=== PATIENT | female | born 1945 | race Caucasian/White ===

== ENCOUNTER 2024-07-24 10:10 | Observation (INO) | payer MEDICARE ==
[~2024-07-24] VITALS: Ht 162.6 cm; Wt 48.1 kg
[2024-07-24 11:48] LABS: BASOPHILS ABSOLUTE AUTO 0.04 K/mm3 (0.00-0.23); BASOPHILS PERCENT AUTO 0 % (0-2); EOSINOPHILS ABSOLUTE AUTO 0.34 K/mm3 (0.00-0.68); EOSINOPHILS PERCENT AUTO 4 % (0-6); Hematocrit 38.5 % (33.0-51.0); Hemoglobin 11.9 g/dL (11.5-16.0); IMMATURE GRAN ABSOLUTE AUTO 0.04 K/mm3 (0.00-0.10); IMMATURE GRAN PERCENT AUTO 0 % (0-1); LYMPHOCYTES ABSOLUTE AUTO 1.12 K/mm3 (0.84-5.20); LYMPHOCYTES PERCENT AUTO 12 % (21-46); MONOCYTES ABSOLUTE AUTO 0.62 K/mm3 (0.16-1.47); MONOCYTES PERCENT AUTO 6 % (4-13); Mean Corpuscular HGB Conc 30.9 g/dL (31.5-36.5); Mean Corpuscular Volume 87 fL (80-100); Mean Platelet Volume 11.8 fL (9.1-12.4); NEUTROPHILS ABSOLUTE AUTO 7.61 K/mm3 (1.96-9.15); NEUTROPHILS PERCENT AUTO 78 % (41-73); Platelet Count 216 K/mm3 (150-400); RDW Standard Deviation 48.3 fL (35.1-46.3); Red Blood Cell Count 4.41 M/mm3 (3.80-5.20); White Blood Cell Count 9.77 K/mm3 (4.00-11.30)
[2024-07-24 12:13] LABS: Albumin, Blood 3.1 g/dL (3.4-5.0); Albumin/Globulin Ratio 0.6 (0.8-1.8); Bilirubin, Total 0.6 mg/dL (0.1-1.0); Bun/Creatinine Ratio 37.2 (12.0-20.0); Calcium, Blood 9.5 mg/dL (8.5-10.1); Creatinine, Blood 0.81 mg/dL (0.40-1.00); Globulin, Blood 4.8 g/dL (2.2-4.0); Potassium, Blood 4.1 mmol/L (3.5-5.5); Total Protein, Blood 7.9 g/dL (6.4-8.2)
[2024-07-24] MEDS ORDERED: NS 1,000 ML IV SCH (14:45)
[2024-07-24 15:45] LABS: Influenza A, PCR NEGATIVE (NEGATIVE); Influenza B, PCR NEGATIVE (NEGATIVE); Resp Syncytial Virus, PCR NEGATIVE (NEGATIVE); SARS-Cov-2 (COVID-19) PCR, MMC NEGATIVE (NEGATIVE)
[2024-07-24] MEDS ORDERED: Metoprolol Tartrate 1 MG/ML 5 ML VIAL IV PRN (17:25)
[2024-07-24 19:18] LABS: Source, Urine Straight Cath
[2024-07-24 19:20] LABS: Appearance, Urine Clear (Clear); Bilirubin, Urine Neg (Neg); Blood, Urine 1+ (Neg); Glucose Qualitative, Urine Neg (Neg); Ketones, Urine Neg (Neg); Leukocyte Esterase, Urine Neg (Neg); Nitrite, Urine Neg (Neg); Protein, Urine 2+ (Neg); Specific Gravity, Urine 1.005 (1.003-1.022); Urobilinogen, Urine NORM (Normal)
[2024-07-24 19:26] LABS: Color, Urine Pale Yellow (P-Yellow)
[2024-07-24 19:27] LABS: Bacteria Rare /hpf; Squamous Epithelial Cells Not Seen /hpf (Few); White Blood Cells, Urine 0-2 /hpf (0-5)
[2024-07-24 19:38] LABS: International Normalized Ratio 0.94; Prothrombin Time Results 10.1 Sec (9.7-11.5)
[2024-07-24] MEDS ORDERED: Cephalexin Monohydrate 500 MG Cap PO ONE (22:10)
[2024-07-24] MEDS ORDERED: FLU VACC TS2024-25(6MOS UP)/PF 45 MCG/0.5 ML SYRINGE IM SCH (23:00)
[2024-07-25] MEDS ORDERED: Cephalexin Monohydrate 500 MG Cap PO ONE (00:45)
[2024-07-25 02:00] LABS: CHOL/HDL RATIO 3.5; Cholesterol 187 mg/dL (50-200); HDL Cholesterol 54 mg/dL (>39); LDL/HDL RATIO 2.2; Low Density Lipoprotein Chol 120 mg/dL (0-110); Triglycerides 64 mg/dL (30-160); Very Low Density Lipoprot Chol 12 mg/dL (6-32)
[2024-07-25 06:19] LABS: BASOPHILS ABSOLUTE AUTO 0.04 K/mm3 (0.00-0.23); BASOPHILS PERCENT AUTO 1 % (0-2); EOSINOPHILS ABSOLUTE AUTO 0.28 K/mm3 (0.00-0.68); EOSINOPHILS PERCENT AUTO 4 % (0-6); Hemoglobin 10.4 g/dL (11.5-16.0); IMMATURE GRAN ABSOLUTE AUTO 0.02 K/mm3 (0.00-0.10); IMMATURE GRAN PERCENT AUTO 0 % (0-1); LYMPHOCYTES ABSOLUTE AUTO 1.08 K/mm3 (0.84-5.20); LYMPHOCYTES PERCENT AUTO 15 % (21-46); MONOCYTES ABSOLUTE AUTO 0.59 K/mm3 (0.16-1.47); MONOCYTES PERCENT AUTO 8 % (4-13); Mean Corpuscular HGB 26.8 pg (26.0-34.0); Mean Corpuscular HGB Conc 30.6 g/dL (31.5-36.5); Mean Corpuscular Volume 88 fL (80-100); Mean Platelet Volume 12.4 fL (9.1-12.4); NEUTROPHILS PERCENT AUTO 73 % (41-73); Platelet Count 172 K/mm3 (150-400); RDW Coefficient Variation 15.1 % (11.7-14.2); RDW Standard Deviation 48.7 fL (35.1-46.3); Red Blood Cell Count 3.88 M/mm3 (3.80-5.20); White Blood Cell Count 7.31 K/mm3 (4.00-11.30)
[2024-07-25 06:43] LABS: Bun/Creatinine Ratio 27.5 (12.0-20.0); Calcium, Blood 8.3 mg/dL (8.5-10.1); Creatinine, Blood 0.69 mg/dL (0.40-1.00); Potassium, Blood 4.5 mmol/L (3.5-5.5)
[2024-07-25] MEDS ORDERED: CeFAZolin Sodium 1,000 MG in NS 50 ML IV SCH (08:00)
[2024-07-25] MEDS ORDERED: Enoxaparin 40 MG/0.4 ML SYR SC SCH (09:00)
[2024-07-25] MEDS ORDERED: Furosemide 10 MG/ML 4ML Vial IV SCH (09:00)
[2024-07-25 16:24] VITALS: BP 142/68
[2024-07-25] MEDS ORDERED: NS 250 ML IV PRN (16:40)
--- NOTE | 2024-07-25 17:27 | NUR ---
TRANSFER NOTE: PT TRANSFERED FROM ED BY STRETCHER ARRIVED AT 1600. PT AOX 2/3 KNOWS SHES IN THE HOSPITAL BUT REGULARLY FORGETS WHY. PLEASANTLY CONFUSED, REDIRECTIBLE, NOT IMPUSLIVE, FOLLOWS COMMANDS. SON, WHO IS MEDICAL POWER OF WILDLIFE REMOVAL SPECIALIST AT BEDSIDE TO AID IN HEALTH HISTORY. SLID FROM ED GURNEY TO BED. SKIN IS OKAY EXCEPT FOR BRUISING, SCABS, AND EXCORIATION ON LEGS. BED IN LOWEST POSITION, PUREWICK IN PLACE, RAILS UP, AND CALL LIGHT IN REACH.
--- NOTE | 2024-07-25 17:30 | NUR ---
SHIFT SUMMARY: ARRIVED FROM ER @1600, ADMISSION ASSESSMENT PERFORMED. SEE TRANSFER NOT FOR DETAILS.
--- NOTE | 2024-07-25 17:37 | NUR ---
THIS FRONT ATTENDANT HAS REVIEWED AND AGREES WITH ALL NOTES AND ASSESSMENTS BY KYLIE GUALLPA.
[2024-07-25] MEDS ORDERED: Nicotine 21 MG PATCH TOP SCH (19:00)
[2024-07-25 20:58] VITALS: BP 102/59
[2024-07-26 04:40] VITALS: BP 107/95
--- NOTE | 2024-07-26 06:31 | NUR ---
SHIFT SUMMARY PATIENT SLEPT WELL, WAS UP TO BSC WITH 1 SBA, JOSE ALBERTO WELL. PATIENT REFUSED THE NICOTINE PATCH, SHE WAS AFRAID IT MAY BE TOO STRONG FOR HER. CALLED APPPROPRIATLY AND WAS PLEASANT TO WORK WITH.
[2024-07-26 07:54] VITALS: BP 141/69
[2024-07-26 08:04] LABS: BASOPHILS ABSOLUTE AUTO 0.05 K/mm3 (0.00-0.23); BASOPHILS PERCENT AUTO 1 % (0-2); EOSINOPHILS ABSOLUTE AUTO 0.41 K/mm3 (0.00-0.68); EOSINOPHILS PERCENT AUTO 4 % (0-6); Hematocrit 37.5 % (33.0-51.0); Hemoglobin 11.8 g/dL (11.5-16.0); IMMATURE GRAN ABSOLUTE AUTO 0.04 K/mm3 (0.00-0.10); IMMATURE GRAN PERCENT AUTO 0 % (0-1); LYMPHOCYTES ABSOLUTE AUTO 1.29 K/mm3 (0.84-5.20); LYMPHOCYTES PERCENT AUTO 12 % (21-46); MONOCYTES ABSOLUTE AUTO 0.72 K/mm3 (0.16-1.47); MONOCYTES PERCENT AUTO 7 % (4-13); Mean Corpuscular HGB 27.3 pg (26.0-34.0); Mean Corpuscular HGB Conc 31.5 g/dL (31.5-36.5); Mean Corpuscular Volume 87 fL (80-100); NEUTROPHILS ABSOLUTE AUTO 7.93 K/mm3 (1.96-9.15); NEUTROPHILS PERCENT AUTO 76 % (41-73); Platelet Count 241 K/mm3 (150-400); RDW Standard Deviation 47.8 fL (35.1-46.3); Red Blood Cell Count 4.33 M/mm3 (3.80-5.20); White Blood Cell Count 10.44 K/mm3 (4.00-11.30)
[2024-07-26 08:25] LABS: Bun/Creatinine Ratio 27.1 (12.0-20.0); Calcium, Blood 9.7 mg/dL (8.5-10.1); Creatinine, Blood 1.07 mg/dL (0.40-1.00); Potassium, Blood 3.9 mmol/L (3.5-5.5)
[2024-07-26 16:00] VITALS: BP 137/57
--- NOTE | 2024-07-26 17:02 | NUR ---
SHIFT SUMMARY: PT PLEASANTLY CONFUSED ORIENTED TO SELF PLACE AND SITUATION BUT FOREGETS WHERE SHE IS OCCASSIONALLY. SOME CONFUSION/ MEMORY LOSS. FORGETS ACTIONS BUT CAN STILL BE REDIRECTED AND GOAL ORIENTED. FOLLOWS COMMANDS WELL AND PLEASANT TO TALK TO. SOME DIMINISHED BREATHING BUT DENIES ANY CHEST PAIN OR SHORTNESS OF BREATH. LEGS LOOK LESS SWOLEN AND MORE JUST MOTTLED WITH SOME SCABS. PT EVAL DONE AND CAN TRANSFER TO COMMODE AND INTO CHAIR WITH 1 PERSON ASSIST. TOLERATING DIET AND MEDS WELL. REFUSED NICOTINE PATCH. CURRENTLY IN BED, BED IN LOWEST POSITION, CALL LIGHT IN REACH. VOIDED MULTIPLE TIMES AND ONE SMALL BM. CONTINUING CARE.
--- NOTE | 2024-07-26 18:27 | NUR ---
THIS FOUNDER HAS REVIEWD AND AGREES WITH ALL NOTES AND ASSESSMENTS BY KYLIE GUALLPA.
[2024-07-26 19:34] VITALS: BP 128/63
[2024-07-27 04:28] VITALS: BP 130/66
--- NOTE | 2024-07-27 05:40 | NUR ---
SHIFT SUMMARY PATIENT UP TO BSC ABOUT EVERY 90 MIN. WITH LESS THAN 25CC VOIDS! ALSO HAD TO REMIND HER EACH TIME TO USE CALL LIGHT, NOT JUST CALL OUT. TELE SR @ 75. REFUSED NICOTINE PATCH. VITALS STABLE.
[2024-07-27 07:15] LABS: BASOPHILS ABSOLUTE AUTO 0.05 K/mm3 (0.00-0.23); BASOPHILS PERCENT AUTO 1 % (0-2); EOSINOPHILS ABSOLUTE AUTO 0.56 K/mm3 (0.00-0.68); EOSINOPHILS PERCENT AUTO 7 % (0-6); Hematocrit 34.7 % (33.0-51.0); IMMATURE GRAN ABSOLUTE AUTO 0.03 K/mm3 (0.00-0.10); IMMATURE GRAN PERCENT AUTO 0 % (0-1); LYMPHOCYTES ABSOLUTE AUTO 1.48 K/mm3 (0.84-5.20); LYMPHOCYTES PERCENT AUTO 18 % (21-46); MONOCYTES ABSOLUTE AUTO 0.71 K/mm3 (0.16-1.47); MONOCYTES PERCENT AUTO 9 % (4-13); Mean Corpuscular HGB 27.1 pg (26.0-34.0); Mean Corpuscular HGB Conc 31.7 g/dL (31.5-36.5); Mean Corpuscular Volume 86 fL (80-100); Mean Platelet Volume 11.8 fL (9.1-12.4); NEUTROPHILS ABSOLUTE AUTO 5.35 K/mm3 (1.96-9.15); NEUTROPHILS PERCENT AUTO 65 % (41-73); Platelet Count 224 K/mm3 (150-400); RDW Standard Deviation 47.1 fL (35.1-46.3); Red Blood Cell Count 4.06 M/mm3 (3.80-5.20); White Blood Cell Count 8.18 K/mm3 (4.00-11.30)
[2024-07-27 07:17] VITALS: BP 137/56
[2024-07-27 07:36] LABS: Albumin, Blood 2.8 g/dL (3.4-5.0); Albumin/Globulin Ratio 0.7 (0.8-1.8); Bilirubin, Total 0.3 mg/dL (0.1-1.0); Bun/Creatinine Ratio 30.2 (12.0-20.0); Calcium, Blood 9.4 mg/dL (8.5-10.1); Creatinine, Blood 1.16 mg/dL (0.40-1.00); Globulin, Blood 4.2 g/dL (2.2-4.0); Potassium, Blood 4.2 mmol/L (3.5-5.5)
--- NOTE | 2024-07-27 08:30 | NUR ---
MET WITH HOSPITALISTS DURING MORNING ROUNDS WITH PT AND PT'S CAREGIVER (SOON TO BE DIL). DISCUSSED URINARY FREQUENCY AND LACK OF URINARY RETENTION ON POST VOID BLADDER SCAN. PT REQUESTING TO USE THE BATHROOM STATING THAT SHE NEEDS TO URINATE APPROXIMATELY EVERY 5-20 MINUTES AND DOES NOT RECALL LAST VOID DESPITE STAFF WRITING LATEST VOID ON PT'S WHITEBOARD. ALSO DISCUSSED THAT PT DOES NOT CURRENTLY HAVE A PCP AND TAKES NO MEDICATIONS AT HOME. HOSPITALIST, DR. ZARAGOZA STATED TO PT AND FAMILY THAT HE WOULD ACCEPT PT TO HIS PRACTICE AND INSTRUCTED PT/FAMILY TO CALL [facility] AND SCHEDULE INTAKE APPOINTMENT.
[2024-07-27] MEDS ORDERED: Empagliflozin 10 MG TAB PO SCH (09:00)
[2024-07-27 16:37] VITALS: BP 140/73
[2024-07-27 18:47] VITALS: BP 149/59
[2024-07-27 19:30] VITALS: BP 129/59
--- NOTE | 2024-07-27 20:15 | NUR ---
LATE ENTRY SHIFT SUMMARY: ABBIE IS A&OX2-3. VSS, NO ACUTE EVENTS THIS SHIFT. PT CALLS STATING THAT SHE NEEDS TO URINATE FREQUENTLY, DISCUSSED WITH FAMILY AND HOSPITALIST. DISCUSSED POSSIBILITY OF TRIALING OXYBUTYNIN. POST-VOID BLADDER SCAN NEGATIVE FOR RESIDUAL. POSSIBLE URETHRAL PROLAPSE ON EXAM, NO RECTAL OR VAGINAL PROLAPSE VISUALIZED, NON-INFLAMED HEMORRHOIDS PRESENT. DISCUSSED DISCHARGE PLANNING WITH PT AND FAMILY, CARE COORDINATION INVOLVED. PT AND FAMILY PLAN TO DISCHARGE HOME TOMORROW. PT IS A ONE-PERSON ASSIST TO THE BEDSIDE COMMODE, ATTENDS IN PLACE. SHE IS TOLERATING PO INTAKE WELL, ENCOURAGED TO DRINK WATER. SHE HAS NOT BEEN IMPULSIVE OR ATTEMPTED TO GET OOB INDEPENDENTLY, HAS USED THE CALL LIGHT APPROPRIATELY AND FOLLOWS STAFF DIRECTIONS. SHE SI LYING IN BED WITH THE CALL LIGHT IN REACH. REPORT WAS GIVEN TO OCEAN FREIGHT FORWARDER RN.
[2024-07-28 03:25] VITALS: BP 130/56
--- NOTE | 2024-07-28 06:35 | NUR ---
Shift Summary No acute changes this shift. Pt up to BSC every 90 minutes with output from 80 to 300 mL. She is able to pivot transfer well with 1 SBA with no difficulty breathing. She still has urinary urge to go every 10-30 minutes but she was encouraged to wait at least 1 hour between voids and she was able manage this. On tele running SR in the 70s, no events.
[2024-07-28 07:14] VITALS: BP 129/57
[2024-07-28 07:59] LABS: BASOPHILS ABSOLUTE AUTO 0.04 K/mm3 (0.00-0.23); BASOPHILS PERCENT AUTO 1 % (0-2); EOSINOPHILS ABSOLUTE AUTO 0.46 K/mm3 (0.00-0.68); EOSINOPHILS PERCENT AUTO 5 % (0-6); Hematocrit 34.9 % (33.0-51.0); IMMATURE GRAN ABSOLUTE AUTO 0.02 K/mm3 (0.00-0.10); IMMATURE GRAN PERCENT AUTO 0 % (0-1); LYMPHOCYTES ABSOLUTE AUTO 1.49 K/mm3 (0.84-5.20); LYMPHOCYTES PERCENT AUTO 17 % (21-46); MONOCYTES ABSOLUTE AUTO 0.72 K/mm3 (0.16-1.47); MONOCYTES PERCENT AUTO 8 % (4-13); Mean Corpuscular HGB 27.1 pg (26.0-34.0); Mean Corpuscular HGB Conc 31.5 g/dL (31.5-36.5); Mean Corpuscular Volume 86 fL (80-100); Mean Platelet Volume 11.8 fL (9.1-12.4); NEUTROPHILS ABSOLUTE AUTO 5.95 K/mm3 (1.96-9.15); NEUTROPHILS PERCENT AUTO 69 % (41-73); Platelet Count 231 K/mm3 (150-400); RDW Coefficient Variation 14.9 % (11.7-14.2); RDW Standard Deviation 47.1 fL (35.1-46.3); Red Blood Cell Count 4.06 M/mm3 (3.80-5.20); White Blood Cell Count 8.68 K/mm3 (4.00-11.30)
[2024-07-28 08:19] LABS: Calcium, Blood 9.6 mg/dL (8.5-10.1); Creatinine, Blood 1.03 mg/dL (0.40-1.00); Potassium, Blood 4.5 mmol/L (3.5-5.5)
[2024-07-28] MEDS ORDERED: JARDIANCE10 MG PO (13:38)
[2024-07-28] MEDS ORDERED: NICO21TP TOP (13:38)
[2024-07-28] MEDS ORDERED: FURO20 PO (13:39)
--- NOTE | 2024-07-28 14:00 | NUR ---
DISCUSSED DISCHARGE INSTRUCTIONS WITH PT AND FAMILY. MEDICATIONS WERE FAXED TO [facility]. COORDINATED WITH MARKET INVESTIGATOR FOR [facility] WHICH PT AND FAMILY HAD REQUESTED. PT'S FAMILY TOOK ALL PERSONAL BELONGINGS AT DISCHARGE. PT'S FAMILY TRANSPORTING HER TO HER NEW HOME AT A [facility], FAMILY DID NOT PROVIDE THE NAME. IV REMOVED. PT TRANSPORTED TO PERSONAL VEHICLE VIA WHEELCHAIR.
== END 2024-07-28 14:16 | disposition home or self-care (01) ==
LOC: ER 10:10 → MEDS 10:11 → ERHOLD 10:11 → MEDS 10:12 → ERHOLD 07-25 16:00 → MEDS 07-25 16:00
PROVIDERS: Family Medicine; Physician Assistant; Registered Nurse; Student in an Organized Health Care Education/Training Program; ADMIT Internal Medicine
DX: I11.0 Hypertensive heart disease with heart failure (principal); I50.31 Acute diastolic (congestive) heart failure; L03.116 Cellulitis of left lower limb; L03.115 Cellulitis of right lower limb; F17.290 Nicotine dependence, other tobacco product, uncomplicated; D49.0 Neoplasm of unspecified behavior of digestive system; J43.9 Emphysema, unspecified; R91.1 Solitary pulmonary nodule; I87.8 Other specified disorders of veins; G31.84 Mild cognitive impairment of uncertain or unknown etiology; Z79.899 Other long term (current) drug therapy
CPT/HCPCS: 0241U; 36415; 70450; 70491; 71046; 71260; 80048; 80053; 80061; 81001; 83880; 84439; 84443; 84484; 85025; 85610; 85730; 93005; 93010; 93306; 94760; 96365; 96366; 96372; 96375; 96375-59; 96376; 97110; 97116; 97162; 97165; 97530; 97535; 99285-25; A9270; G0378; J0690; J1650; J1940; J7030; J7050; Q9967

== ENCOUNTER → 2024-08-10 | Outpatient (CLI) | payer MEDICARE ==
[~2024-08-10] MED LIST: FURO20 PO; JARDIANCE10 MG PO; NICO21TP TOP
[2024-08-10 19:12] LABS: Appearance, Urine Clear (Clear); Bilirubin, Urine Neg (Neg); Blood, Urine 3+ (Neg); Color, Urine Yellow (P-Yellow); Glucose Qualitative, Urine 4+ (Neg); Ketones, Urine Neg (Neg); Leukocyte Esterase, Urine 2+ (Neg); Nitrite, Urine Neg (Neg); Protein, Urine 1+ (Neg); Urobilinogen, Urine NORM (Normal)
[2024-08-10 19:28] LABS: Bacteria Mod /hpf; Squamous Epithelial Cells Few /hpf (Few)
[2024-08-10 19:42] LABS: Bun/Creatinine Ratio 28.2 (12.0-20.0); Calcium, Blood 9.1 mg/dL (8.5-10.1); Creatinine, Blood 1.03 mg/dL (0.40-1.00); Potassium, Blood 4.6 mmol/L (3.5-5.5)
== END | disposition home or self-care (01) ==
LOC: LAB 15:20 → LAB SHORT 15:20
PROVIDERS: Family Medicine
DX: I51.7 Cardiomegaly (principal); R39.15 Urgency of urination; R35.0 Frequency of micturition
CPT/HCPCS: 80048; 81001; 87086

== ENCOUNTER → 2024-09-21 | Outpatient (CLI) | payer MEDICARE ==
[2024-09-21 15:10] LABS: Bun/Creatinine Ratio 21.4 (12.0-20.0); Calcium, Blood 9.6 mg/dL (8.5-10.1); Creatinine, Blood 1.26 mg/dL (0.40-1.00); Potassium, Blood 3.5 mmol/L (3.5-5.5)
== END | disposition home or self-care (01) ==
LOC: LAB 13:12 → LAB SHORT 13:12
PROVIDERS: Family Medicine
DX: I50.32 Chronic diastolic (congestive) heart failure (principal)
CPT/HCPCS: 80048

== ENCOUNTER → 2024-11-02 | Outpatient (CLI) | payer OTHER ==
[2024-11-03 11:44] LABS: Stool Occult Bld Immuno 1 Positive (NEGATIVE)
== END | disposition home or self-care (01) ==
LOC: LAB SHORT 14:48 → LAB 14:48 → LAB SO 10-25 14:55
PROVIDERS: Physician Assistant Medical
DX: K92.1 Melena (principal)
CPT/HCPCS: G0328

== ENCOUNTER → 2024-11-10 | Outpatient (CLI) | payer OTHER ==
[~2024-11-10] MED LIST changes: +ACET500 PO
[2024-11-11 11:59] LABS: Stool Occult Bld Immuno 1 Negative (NEGATIVE)
== END | disposition home or self-care (01) ==
LOC: LAB 13:12 → LAB SHORT 13:12
PROVIDERS: Physician Assistant Medical
DX: K92.1 Melena (principal)
CPT/HCPCS: G0328

== ENCOUNTER 2024-11-15 12:32 | Emergency (ER) | payer OTHER ==
[~2024-11-15] VITALS: Ht 170.2 cm; Wt 46.7 kg
[~2024-11-15 12:32] MED LIST changes: -ACET500 PO
[2024-11-15] MEDS ORDERED: ACET500 PO (14:52)
== END 2024-11-15 15:01 | disposition home or self-care (01) ==
LOC: ER 12:32
DX: S52.592A Other fractures of lower end of left radius, initial encounter for closed fracture (principal); K92.1 Melena; Z79.84 Long term (current) use of oral hypoglycemic drugs; Z79.899 Other long term (current) drug therapy; W06.XXXA Fall from bed, initial encounter
CPT/HCPCS: 29125; 73110; 99283-25; G0328

== ENCOUNTER → 2024-11-15 | Outpatient (CLI) | payer MEDICARE ==
[2024-11-15 15:57] LABS: Stool Occult Bld Immuno 1 Negative (NEGATIVE)
== END ==
LOC: LAB SHORT 13:27 → LAB FUT 11-10 13:15
PROVIDERS: Physician Assistant Medical
DX: K92.1 Melena (principal)
CPT/HCPCS: G0328

== ENCOUNTER 2025-04-12 12:53 | Emergency (ER) | payer OTHER ==
[~2025-04-12] VITALS: Ht 162.6 cm; Wt 45.4 kg
[~2025-04-12 12:53] MED LIST changes: +ACET500 PO
[2025-04-12 13:39] LABS: BASOPHILS ABSOLUTE AUTO 0.04 K/mm3 (0.00-0.23); BASOPHILS PERCENT AUTO 0 % (0-2); EOSINOPHILS ABSOLUTE AUTO 0.25 K/mm3 (0.00-0.68); EOSINOPHILS PERCENT AUTO 3 % (0-6); Hemoglobin 11.2 g/dL (11.5-16.0); IMMATURE GRAN ABSOLUTE AUTO 0.03 K/mm3 (0.00-0.10); IMMATURE GRAN PERCENT AUTO 0 % (0-1); LYMPHOCYTES ABSOLUTE AUTO 0.89 K/mm3 (0.84-5.20); LYMPHOCYTES PERCENT AUTO 9 % (21-46); MONOCYTES PERCENT AUTO 9 % (4-13); Mean Corpuscular HGB 25.9 pg (26.0-34.0); Mean Corpuscular HGB Conc 31.1 g/dL (31.5-36.5); Mean Corpuscular Volume 83 fL (80-100); Mean Platelet Volume 10.3 fL (9.1-12.4); NEUTROPHILS ABSOLUTE AUTO 8.09 K/mm3 (1.96-9.15); NEUTROPHILS PERCENT AUTO 79 % (41-73); Platelet Count 299 K/mm3 (150-400); RDW Coefficient Variation 14.7 % (11.7-14.2); RDW Standard Deviation 44.9 fL (35.1-46.3); Red Blood Cell Count 4.33 M/mm3 (3.80-5.20)
[2025-04-12 13:55] LABS: Albumin, Blood 2.5 g/dL (3.4-5.0); Albumin/Globulin Ratio 0.5 (0.8-1.8); Bilirubin, Total 0.6 mg/dL (0.1-1.0); Bun/Creatinine Ratio 18.6 (12.0-20.0); Creatinine, Blood 1.18 mg/dL (0.40-1.00); Globulin, Blood 5.2 g/dL (2.2-4.0); Potassium, Blood 3.8 mmol/L (3.5-5.5); Total Protein, Blood 7.7 g/dL (6.4-8.2)
[2025-04-12] MEDS ORDERED: Cephalexin Monohydrate 500 MG Cap PO ONE (17:25)
[2025-04-12] MEDS ORDERED: Trimethoprim/Sulfamethoxazole DS Tab PO ONE (17:25)
[2025-04-12] MEDS ORDERED: CEPH500 PO (17:43)
[2025-04-12] MEDS ORDERED: BACTRIM DS TAB1 EAC1 PO (17:43)
[2025-04-12] MEDS ORDERED: HyDROXyzine HCl 25 MG Tab PO ONE (17:55)
== END 2025-04-12 18:24 | disposition home or self-care (01) ==
LOC: ER 12:53
PROVIDERS: Emergency Medicine
DX: L03.116 Cellulitis of left lower limb (principal); L03.115 Cellulitis of right lower limb; Z79.899 Other long term (current) drug therapy
CPT/HCPCS: 71045; 80053; 83690; 83880; 84484; 85025; 93005; 93010; 99284-25; A9270

== ENCOUNTER 2025-06-05 12:36 | Emergency (ER) | payer OTHER ==
[~2025-06-05] VITALS: Ht 157.5 cm; Wt 46.3 kg
[~2025-06-05 12:36] MED LIST changes: +BACTRIM DS TAB1 EAC1 PO; +CEPH500 PO
[2025-06-05 13:46] LABS: BASOPHILS ABSOLUTE AUTO 0.05 K/mm3 (0.00-0.23); BASOPHILS PERCENT AUTO 1 % (0-2); EOSINOPHILS ABSOLUTE AUTO 0.23 K/mm3 (0.00-0.68); EOSINOPHILS PERCENT AUTO 2 % (0-6); Hematocrit 36.3 % (33.0-51.0); Hemoglobin 11.4 g/dL (11.5-16.0); IMMATURE GRAN ABSOLUTE AUTO 0.04 K/mm3 (0.00-0.10); IMMATURE GRAN PERCENT AUTO 0 % (0-1); LYMPHOCYTES ABSOLUTE AUTO 0.90 K/mm3 (0.84-5.20); LYMPHOCYTES PERCENT AUTO 9 % (21-46); MONOCYTES ABSOLUTE AUTO 0.96 K/mm3 (0.16-1.47); MONOCYTES PERCENT AUTO 9 % (4-13); Mean Corpuscular HGB Conc 31.4 g/dL (31.5-36.5); Mean Corpuscular Volume 82 fL (80-100); NEUTROPHILS ABSOLUTE AUTO 8.35 K/mm3 (1.96-9.15); NEUTROPHILS PERCENT AUTO 79 % (41-73); NRBC ABSOLUTE 0.00 K/mm3 (0.00-0.02); NRBC Auto 0.0 /100 WBC (0.0-0.2); Platelet Count 374 K/mm3 (150-400); RDW Coefficient Variation 16.7 % (11.7-14.2); RDW Standard Deviation 50.1 fL (35.1-46.3)
[2025-06-05 14:10] LABS: Alanine Aminotransfer (ALT/SGP 31.0 U/L (12-78); Albumin, Blood 2.2 g/dL (3.4-5.0); Albumin/Globulin Ratio 0.4 (0.8-1.8); Anion Gap 9.0 mmol/L (3-11); Aspartate Aminotrans (AST/SGOT 30.0 U/L (12-37); Bilirubin, Total 0.5 mg/dL (0.1-1.0); Blood Urea Nitrogen 25.0 mg/dL (8-24); CO2, Blood 25.0 mmol/L (21-32); Calcium, Blood 8.8 mg/dL (8.5-10.1); Chloride, Blood 104.0 mmol/L (98-108); Creatinine, Blood 1.25 mg/dL (0.40-1.00); Globulin, Blood 5.6 g/dL (2.2-4.0); Glucose, Blood 93.0 mg/dL (70-99); Potassium, Blood 4.8 mmol/L (3.5-5.5); Sodium, Blood 133.0 mmol/L (136-145); Total Protein, Blood 7.8 g/dL (6.4-8.2)
[2025-06-05] MEDS ORDERED: NS 1,000 ML IV SCH (17:15)
[2025-06-05] MEDS ORDERED: Trimethoprim/Sulfamethoxazole DS Tab PO ONE (17:20)
[2025-06-05] MEDS ORDERED: Betamethasone V15 G1 TOP (17:28)
== END 2025-06-05 20:23 | disposition home or self-care (01) ==
LOC: ER 12:36
PROVIDERS: Physician Assistant
DX: L03.116 Cellulitis of left lower limb (principal); L03.115 Cellulitis of right lower limb; Z79.84 Long term (current) use of oral hypoglycemic drugs; Z79.899 Other long term (current) drug therapy; F17.290 Nicotine dependence, other tobacco product, uncomplicated
CPT/HCPCS: 80053; 85025; 99284; A9270; J7030

== ENCOUNTER 2025-06-20 14:59 | Emergency (ER) | payer OTHER ==
[~2025-06-20] VITALS: Ht 157.5 cm; Wt 45.4 kg
[~2025-06-20 14:59] MED LIST changes: +Betamethasone V15 G1 TOP
[2025-06-20] MEDS ORDERED: NS 1,000 ML IV SCH (16:50)
[2025-06-20 17:05] LABS: BASOPHILS ABSOLUTE AUTO 0.04 K/mm3 (0.00-0.23); BASOPHILS PERCENT AUTO 0 % (0-2); EOSINOPHILS ABSOLUTE AUTO 0.15 K/mm3 (0.00-0.68); EOSINOPHILS PERCENT AUTO 2 % (0-6); Hematocrit 41.4 % (33.0-51.0); Hemoglobin 12.8 g/dL (11.5-16.0); IMMATURE GRAN ABSOLUTE AUTO 0.03 K/mm3 (0.00-0.10); IMMATURE GRAN PERCENT AUTO 0 % (0-1); LYMPHOCYTES ABSOLUTE AUTO 0.82 K/mm3 (0.84-5.20); LYMPHOCYTES PERCENT AUTO 9 % (21-46); MONOCYTES ABSOLUTE AUTO 0.80 K/mm3 (0.16-1.47); MONOCYTES PERCENT AUTO 9 % (4-13); Mean Corpuscular HGB Conc 30.9 g/dL (31.5-36.5); Mean Corpuscular Volume 82 fL (80-100); NEUTROPHILS ABSOLUTE AUTO 7.05 K/mm3 (1.96-9.15); NEUTROPHILS PERCENT AUTO 79 % (41-73); NRBC ABSOLUTE 0.00 K/mm3 (0.00-0.02); NRBC Auto 0.0 /100 WBC (0.0-0.2); Platelet Count 330 K/mm3 (150-400); RDW Coefficient Variation 17.0 % (11.7-14.2); RDW Standard Deviation 50.5 fL (35.1-46.3)
[2025-06-20 17:35] LABS: Alanine Aminotransfer (ALT/SGP 16.0 U/L (12-78); Albumin, Blood 3.0 g/dL (3.4-5.0); Albumin/Globulin Ratio 0.5 (0.8-1.8); Anion Gap 10.0 mmol/L (3-11); Aspartate Aminotrans (AST/SGOT 26.0 U/L (12-37); Bilirubin, Total 0.5 mg/dL (0.1-1.0); Blood Urea Nitrogen 38.0 mg/dL (8-24); CO2, Blood 26.0 mmol/L (21-32); Calcium, Blood 9.9 mg/dL (8.5-10.1); Chloride, Blood 102.0 mmol/L (98-108); Creatinine, Blood 1.39 mg/dL (0.40-1.00); Globulin, Blood 5.8 g/dL (2.2-4.0); Glucose, Blood 97.0 mg/dL (70-99); Magnesium, Blood 2.6 mg/dL (1.6-2.4); Potassium, Blood 4.6 mmol/L (3.5-5.5); Sodium, Blood 133.0 mmol/L (136-145); Total Protein, Blood 8.8 g/dL (6.4-8.2)
[2025-06-20 17:41] LABS: Influenza A, PCR NEGATIVE (NEGATIVE); Influenza B, PCR NEGATIVE (NEGATIVE); Resp Syncytial Virus, PCR NEGATIVE (NEGATIVE)
[2025-06-20 17:54] LABS: SARS-Cov-2 (COVID-19) PCR, MMC POSITIVE (NEGATIVE)
[2025-06-20 20:26] LABS: Source, Urine Voided
[2025-06-20 20:36] LABS: Bilirubin, Urine Neg (Neg); Glucose Qualitative, Urine 4+ (Neg); Ketones, Urine 1+ (Neg); Leukocyte Esterase, Urine 3+ (Neg); Protein, Urine 1+ (Neg); Specific Gravity, Urine 1.025 (1.003-1.022); Urobilinogen, Urine NORM (Normal)
[2025-06-20 20:37] LABS: Color, Urine Yellow (P-Yellow)
[2025-06-20 20:43] LABS: Red Blood Cells, Urine 0-2 /hpf (0-2); White Blood Cells, Urine TNTC /hpf (0-5)
[2025-06-20 22:05] LABS: Source, Urine Straight Cath
[2025-06-20 22:12] LABS: Bilirubin, Urine Neg (Neg); Glucose Qualitative, Urine 4+ (Neg); Ketones, Urine 1+ (Neg); Leukocyte Esterase, Urine Neg (Neg); Protein, Urine Neg (Neg); Specific Gravity, Urine 1.020 (1.003-1.022); Urobilinogen, Urine NORM (Normal)
[2025-06-20 22:19] LABS: Color, Urine Yellow (P-Yellow)
[2025-06-20 22:20] LABS: Red Blood Cells, Urine 0-2 /hpf (0-2); White Blood Cells, Urine Not Seen /hpf (0-5)
[2025-06-20] MEDS ORDERED: ALBU90OI INH (22:40)
== END 2025-06-20 23:08 | disposition home or self-care (01) ==
LOC: ER 14:59
PROVIDERS: Emergency Medicine; Student in an Organized Health Care Education/Training Program
DX: U07.1 COVID-19 (principal); N18.9 Chronic kidney disease, unspecified; E87.1 Hypo-osmolality and hyponatremia; F03.90 Unspecified dementia, unspecified severity, without behavioral disturbance, psychotic disturbance, mood disturbance, and anxiety; I50.30 Unspecified diastolic (congestive) heart failure; J44.9 Chronic obstructive pulmonary disease, unspecified; Z79.899 Other long term (current) drug therapy
CPT/HCPCS: 36415; 71046; 80053; 81001; 83605; 83690; 83735; 83880; 84484; 85025; 87040; 87086; 87637; 93005; 93010; 96360; 99284-25; J7030